=== PATIENT | male | born 1965 | race Caucasian/White ===

== ENCOUNTER 2016-10-31 08:46 | Day surgery (SDC) | payer OTHER ==
[~2016-10-31] VITALS: Ht 180.3 cm; Wt 95.3 kg
[~2016-10-31 08:46] MED LIST: CEFAZOLIN 2GM PREMIX 50 ML IV PRN; DOCU100T11 PO; FENTANYL PF 100 MCG/2 ML VIAL. IV PRN; HEPARIN S0DIUM 5,000 UNIT in IV NORMAL SALINE 500ML BAG 500 ML IRR ONE; HEPARIN for IV BOLUS 10,000 UNIT/10 ML VIAL. ONE; HYDROMORPHONE 2 MG/ML VIAL. IV PRN; IV RINGERS,LACTATED 1000ML 1,000 ML IV SCH; LIDOCAINE 1% 1 ML SYRINGE. ID PRN; LIDOCAINE 2% 100 MG/5 ML DISP.SYRIN. ONE; LISI1TAB7 PO; LISI2.5T PO; LORA10TA3 PO; MORPHINE SULFATE 2 MG/ML DISP.SYRIN. IV PRN; MULT1TAB52 PO; NEOMY/BACITR/POLYMYXIN OINT PACKET. TP ONE; ONDANSETRON PF 4 MG/2 ML VIAL. IV PRN; OXYC1TAB7 PO; PROAIR HFA8.5 GM INH; PROCHLORPERAZINE 10 MG/2 ML VIAL. IV PRN; PROPOFOL 0 ML IV ONE; RANI150T6 PO
[2016-10-31] MEDS ORDERED: PROPOFOL 20 ML IV ONE ×3 (08:49→09:42)
[2016-10-31] MEDS ORDERED: FENTANYL PF 100 MCG/2 ML VIAL. ONE (08:49)
[2016-10-31] MEDS ORDERED: IV RINGERS,LACTATED 1000ML 1,000 ML IV SCH (09:15)
[2016-10-31] MEDS ORDERED: MIDAZOLAM HCL 2 MG/2 ML VIAL. ONE (09:27)
[2016-10-31] MEDS ORDERED: BUPIVAC MPF-EPI 0.5%-1:200000 30 ML VIAL. IJ ONE (09:50)
[2016-10-31] MEDS ORDERED: BUPIVACAINE MPF 0.5% 30 ML VIAL. IJ ONE (09:50)
--- NOTE | 2016-10-31 10:33 | PDOC ---
BRIEF OPERATIVE NOTE Date: Oct 31, 2016 Pre-Op Diagnosis needs venous access for chemotherapy Post-Op Diagnosis same Procedure Performed placement left subclavian power port Surgeon Gustavo Anesthesia Type: MAC Blood Loss 10cc IV Fluid 200cc Specimens Obtained none Findings post op CXR shows catheter in the SVC without evidence of a pneumothorax Complications none Additional Remarks Wk # [id number] INDRA NICHOLAS MD Oct 31, 2016 10:33
--- NOTE | 2016-10-31 10:34 | DISCH ---
DISCHARGE INSTRUCTIONS Condition on Discharge Condition on Discharge: Stable Activity After Discharge Activity Instructions for Disc: Activity as tolerated, Avoid exertion Lifting Instructions after Dis: No heavy lifting Driving Instructions after Dis: Do not drive today Diet after Discharge Diet after Discharge: Regular Wound Incision Care Wound/Incision Care: Ice to area for comfort Other wound/incision instructi: leave dressing on Follow-Up Follow Up With: Gustavo next week INDRA NICHOLAS MD Oct 31, 2016 10:34
[2016-10-31] MEDS ORDERED: OXYC-323 PO (10:41)
[2016-10-31] MEDS ORDERED: DOCU50CA9 PO (10:42)
[2016-10-31 10:45] VITALS: BP 124/51
[2016-10-31] MEDS ORDERED: OXYCODONE/APAP 5/325 TABLET. PO ONE (11:00)
--- NOTE | 2016-10-31 11:03 | RAD ---
Portable chest, 10/31/2016: History: Check catheter placement, colon mass A left Port-A-Cath has been inserted extending into the superior vena cava. The heart size is normal. There are several scattered nodular opacities in the lungs. There is no evidence of pneumothorax or pleural fluid. No bony abnormality is detected. IMPRESSION: 1. A left Port-A-Cath extends into the superior vena cava. 2. Scattered pulmonary opacities raising the possibility of metastatic disease. A multifocal infectious process could also give this appearance.
--- NOTE | 2016-10-31 11:59 | OP ---
DATE OF SURGERY: 10/31/2016 PREOPERATIVE DIAGNOSIS: Needs venous access for chemotherapy. POSTOPERATIVE DIAGNOSIS: Needs venous access for chemotherapy. PROCEDURE: Placement of a left subclavian PowerPort. SURGEON: Indra Nicholas MD ANESTHESIA: Local with sedation. BLOOD LOSS: 10 mL. INTRAVENOUS FLUID: 200. INDICATIONS: The patient is a 51-year-old status post sigmoid resection for colon cancer. He is going to undergo adjuvant chemotherapy and needs venous access for same. DESCRIPTION OF PROCEDURE: The patient brought to the operating suite and with IV sedation on board, the left chest was prepped and draped in usual sterile fashion. Plain Marcaine 0.5% was infiltrated a fingerbreadth below the clavicle at the junction of the medial two-thirds, lateral third and with the bed in Trendelenburg, a small incision was made and a seeker needle was used to cannulate the subclavian vein. The flexible guidewire was advanced under fluoroscopic observation into the superior vena cava and the needle was removed. Table returned to level. Pocket incision infiltrated with 0.5% Marcaine with epinephrine, incised with blunt dissection a pocket developed that was adequate to accept the reservoir. The catheter was then laid on the patient's chest and with fluoroscopic guidance, cut to an appropriate length and then it was tunneled from the insertion site to the pocket site where it was attached to the reservoir. The reservoir was seated into the pocket and the table placed back in Trendelenburg. Under fluoroscopic observation, the dilators and sheath were passed over the wire. The wire was removed, the dilator was removed and the catheter was threaded through the sheath and the sheath was then removed. There was good flow into and out of the catheter at completion of placement. Pocket incision closed with interrupted inverted 3-0 Vicryl in the subcutaneous tissue. The skin incisions closed with subcuticular 4-0 Monocryl and Steri-Strips. The Urrutia right angle needle access catheter was placed in the port and showed good aspiration as well as an easy flush. The catheter was packed with heparinized saline and a sterile dressing applied. Postop upright chest x-ray showed the tip of the catheter to reside in superior vena cava without evidence of pneumothorax. The patient tolerated procedure well and was taken to the postop area in stable condition. INDRA NICHOLAS MD DR: [place] JOB#: [id number] / [id number]
== END 2016-10-31 11:44 | disposition home or self-care (01) ==
LOC: SURG 08:46
PROVIDERS: ATTEND Surgery
DX: Z45.2 Encounter for adjustment and management of vascular access device (principal); Z90.49 Acquired absence of other specified parts of digestive tract; E78.00 Pure hypercholesterolemia, unspecified; I10 Essential (primary) hypertension; F10.99 Alcohol use, unspecified with unspecified alcohol-induced disorder; Z87.891 Personal history of nicotine dependence
CPT/HCPCS: 36556; 71010; J0690; J2250; J2704; J3010; J7040; C1769; C1788; J3490

== ENCOUNTER → 2017-07-05 | Outpatient (CLI) | payer OTHER ==
[~2017-07-05] MED LIST changes: -CEFAZOLIN 2GM PREMIX 50 ML IV PRN; +DOCU50CA9 PO; -FENTANYL PF 100 MCG/2 ML VIAL. IV PRN; -HEPARIN S0DIUM 5,000 UNIT in IV NORMAL SALINE 500ML BAG 500 ML IRR ONE; -HEPARIN for IV BOLUS 10,000 UNIT/10 ML VIAL. ONE; -HYDROMORPHONE 2 MG/ML VIAL. IV PRN; -IV RINGERS,LACTATED 1000ML 1,000 ML IV SCH; -LIDOCAINE 1% 1 ML SYRINGE. ID PRN; -LIDOCAINE 2% 100 MG/5 ML DISP.SYRIN. ONE; -MORPHINE SULFATE 2 MG/ML DISP.SYRIN. IV PRN; -NEOMY/BACITR/POLYMYXIN OINT PACKET. TP ONE; -ONDANSETRON PF 4 MG/2 ML VIAL. IV PRN; +OXYC-323 PO; -PROCHLORPERAZINE 10 MG/2 ML VIAL. IV PRN; -PROPOFOL 0 ML IV ONE
--- NOTE | 2017-07-05 10:10 | RAD ---
CT of the chest without contrast, 07/05/2017: History: Follow-up lung nodule Noncontrast scans were obtained as requested. No previous chest CTs are available for comparison. There are images through the lung bases from a CT abdomen study of 08/23/2016 which are available for comparison. Tiny basilar opacities seen on 08/23/2016 study are unchanged. Today's scans of the entire chest demonstrate larger irregular parenchymal opacities in the upper chest bilaterally. There is dominant involvement of both upper lobes. These dominant upper lobe densities are elongated and irregular and contain air bronchograms. The appearance suggests confluence scarring or dense infiltrate. Smaller opacities are present in all of the pulmonary lobes. There are mildly enlarged mediastinal lymph nodes containing calcifications. The largest node or node cluster lies in the subcarinal region and measures approximately 3 x 2.5 x 1.6 cm. There are hilar calcifications bilaterally. The hilar lymph nodes cannot be clearly from the unopacified vascular structures but appear to be mildly enlarged. The heart and aorta are of normal size. No pleural fluid is evident. IMPRESSION: 1. Abnormal bilateral parenchymal nodules and infiltrates, with dominant involvement of the upper lobes. The basilar findings are unchanged since 08/23/2016. 2. Mild mediastinal and hilar adenopathy with casey calcifications. 3. Diagnostic considerations include sarcoidosis, progressive massive fibrosis related to a fibrotic pneumoconiosis such as silicosis, or cryptogenic organizing pneumonia. PQRS Compliance Statement: One or more of the following individualized dose reduction techniques were utilized for this examination: 1. Automated exposure control 2. Adjustment of the mA and/or kV according to patient size 3. Use of iterative reconstruction technique
== END | disposition home or self-care (01) ==
LOC: CT 09:06
PROVIDERS: ATTEND Internal Medicine Pulmonary Disease
DX: J84.10 Pulmonary fibrosis, unspecified (principal); D86.89 Sarcoidosis of other sites; R59.9 Enlarged lymph nodes, unspecified
CPT/HCPCS: 71250